=== PATIENT | female | born 1980 | race American Indian/Alaskan Native ===

== ENCOUNTER 2018-06-27 11:25 | Outpatient (CLI) | payer MEDICAID ==
[2018-06-27] MEDS ORDERED: LACTATED RINGERS 500 ML IV ONE (12:23)
[2018-06-27 13:01] LABS: Bilirubin,Urine NEG (Negative); Blood,Urine NEG (Negative); Color,Urine Yellow (Yellow); Mucus,Urine FEW /HPF; Protein,Urine <15 mg/dL mg/dL (Negative); Urobilinogen,Urine < 2.0 mg/dL (<2.0)
[2018-06-27 14:26] VITALS: BP 124/68
--- NOTE | 2018-06-27 14:53 | Ultrasound Report ---
ULTRASOUND OB LIMITED History: well being Technique: Transabdominal ultrasound with Doppler interrogation. Gestation: Single Position: Cephalic Placenta: Posterior fundal Placental Grade: 1 No evidence for abruption. Heart Rate: 166 BPM
== END 2018-06-27 14:53 | disposition home or self-care (01) ==
LOC: TRG 11:25
PROVIDERS: ATTEND Obstetrics & Gynecology
DX: O47.03 False labor before 37 completed weeks of gestation, third trimester (principal); Z3A.29 29 weeks gestation of pregnancy; Z91.040 Latex allergy status
CPT/HCPCS: 59025; 76815; 81001; J7120

== ENCOUNTER 2018-08-30 06:44 | Inpatient (IN) | payer MEDICAID ==
[2018-08-30] MEDS ORDERED: LACTATED RINGERS 2,000 ML ONE (08:30)
[2018-08-30] MEDS ORDERED: BRETHINE IVP PRN (08:59)
[2018-08-30] MEDS ORDERED: BRETHINE SUB-Q PRN (08:59)
[2018-08-30] MEDS ORDERED: LACTATED RINGERS 1,000 ML IV SCH (09:00)
--- NOTE | 2018-08-30 09:07 | Procedure Note ---
OB Delivery Note - Delivery Date of Delivery: 08/30/18 (08:37) Surgeon: JOHN YAP (GALINA) Estimated blood loss: 100cc - Vaginal Delivery presentation: vertex Delivery position: OA Intrapartum events: meconium, precipitous labor- <3hr Delivery induction: none Delivery monitor: external FHT, external uterine Route of delivery: (08:37) Delivery placenta: spontaneous (08:43) Delivery cord: 3 umbilical vessels Episiotomy: none Delivery laceration: none Anesthesia: none Delivery comments: viable female , AYDEN position, over intact perineum at 08:37 with RT/NICU present for meconium stained fluid. Vigorous infant to maternal abdomen, [id number]. Delayed cord clamping and cut by myself. IM pitocin given as pt had no IV. Cord blood collected per protocol. Spontaneous de jesus delivery of intact placenta. 3VC. 08:43. FF@U-2, no tears or lacerations. ebl 100cc. - Infant A at 1 minute: 9 at 5 minutes: 9 Infant Gender: Female (7lbs 3oz, 3262 grams, 20")
[2018-08-30 09:09] LABS: Hematocrit 35.6 % (30.3-42.9); Hemoglobin 11.7 gm/dl (10.1-14.3); Mean Corpuscular HGB Conc 33 % (30-34); Mean Corpuscular Volume 86 fl (79-97); Platelet Count 365 K/mm3 (140-440); Red Blood Count 4.14 M/mm3 (3.65-5.03); Red Cell Distribution Width 14.6 % (13.2-15.2)
--- NOTE | 2018-08-30 09:20 | History and Physical Report ---
History of Present Illness Date of examination: 08/30/18 Date of admission: 08/30/18 08:29 Chief complaint: contractions History of present illness: 38 yo AA Fe RELL 09/08/2018 (LMP) 38 weeks 5 days, presents in active labor. Pt initiated late care at 17w4d. records available. Reviewed and scanned into chart. multip. AMA. Declined consult/management. labs: A positive, Rubella non-immune, VDRL Non-reactive, HBsAg Negative, HIV Negative, GC/CL/Trich Negative, GBS collected. no results available. Past History Past Medical History: no pertinent history Past Surgical History: no surgical history (Denies) [employer] History: denies: abnormal PAP smear, chlamydia, gonorrhea, hepatitis B, hepatitis C, HIV, syphilis, trichomonas Family/Genetic History: diabetes, heart disease, hypertension, cancer (colon, breast) Social history: no significant social history, single, lives with family, full code. denies: smoking, alcohol abuse, prescription drug abuse, IV drug use - Obstetrical History Expected Date of Delivery: 09/08/18 Actual Gestation: 38 Week(s) 5 Day(s) : 10 Para: 6 Hx # Term Pregnancies: 6 Number of Pregnancies: 0 Spontaneous Abortions: 2 Induced : 1 Number of Living Children: 6 #1 Infant Gender: Male year: 2,003 Birthweight: 3.374 kg Method of Delivery: Vaginal Gestational age at delivery: 41 Complications: none #2 year: 2,005 Birthweight: 3.629 kg Method of Delivery: Vaginal Gestational age at delivery: 41 Complications: none #3 Infant Gender: Female year: 2,007 Birthweight: 3.232 kg Method of Delivery: Vaginal Gestational age at delivery: 41 Complications: none #4 Gender: Female year: 2,011 Birthweight: 3.175 kg Method of Delivery: Vaginal Gestational age at delivery: 40 Complications: none #5 Gender: Female year: 2,014 Birthweight: 3.629 kg Method of Delivery: Vaginal Gestational age at delivery: 40 Complications: none #6 Infant Gender: Female year: 2,016 Birthweight: 3.175 kg Method of Delivery: Vaginal Gestational age at delivery: 41 Complications: none Medications and Allergies Allergies Allergy/AdvReac Type Severity Reaction Status Date / Time Latex, Natural Rubber AdvReac Severe Rash Verified 06/27/18 12:23 Active Meds: Active Medications Ephedrine Sulfate (Ephedrine Sulfate) 10 mg IV Q2M PRN PRN Reason: Hypotension Lactated Ringer's (Lactated Ringers) 1,000 mls @ 125 mls/hr IV DIRECT VIRGIL Terbutaline Sulfate (Brethine) 0.25 mg SUB-Q ONCE PRN PRN Reason: Hyperstimulation/Hypertonicity Terbutaline Sulfate (Brethine) 0.25 mg IVP ONCE PRN PRN Reason: Hyperstimulation/Hypertonicity Review of Systems Eyes: normal appearance Cardiovascular: no chest pain, no shortness of breath Respiratory: no shortness of breath Breasts: normal Gastrointestinal: no abdominal pain, no nausea, no vomiting, no diarrhea Genitourinary: normal appearance, leakage of fluid (SROM Meconium in Triage), contractions Musculoskeletal: other (denies) Integumentary: no rash, no sores, no lesions Psychiatric: other (Denies) - Vital Signs Vital signs: Vital Signs Pulse BP 90 127/80 08/30/18 08:49 08/30/18 08:49 Temp Pulse Resp BP Pulse Ox 88 123/79 08/30/18 09:03 08/30/18 09:03 - Physical Exam Breasts: Positive: normal Cardiovascular: Regular rate, Normal S1, Normal S2, No murmurs Abdomen: Positive: soft, normal bowel sounds. Negative: distention Genitourinary (Female): Positive: normal external genitalia, normal perenium Vulva: both: normal Vagina: Positive: normal moisture, other (SROM lg amt meconium stained fluid) Uterus: Positive: enlarged (gravid) Anus/Rectum: Positive: normal perianal skin Extremities: Positive: normal Deep Tendon Reflex Grade: Normal +2 - Obstetrical FHR: auscultation normal, category 2 Uterine Contraction Monitor Mode: External Cervical Dilatation: 10 (6 cm on admission in triage per RN) Cervical Effacement Percentage: 10 station: +2 Uterine Contraction Pattern: Regular Uterine Tone Measurement Phase: Resting Uterine Contraction Intensity: Strong/Firm Results Result Diagrams: 08/30/18 08:50 Abnormal lab results 08/30/18 Range/Units 08:50 WBC 13.8 H (4.5-11.0) K/mm3 All other labs normal. Assessment and Plan A: Term IUP at 38w5d Grand multip AMA 38 yo GBS unknown Category 2 tracing Meconium stained fluid P: Admit to L&D; Routine labor orders Anticiapte
[2018-08-30] MEDS ORDERED: MILK OF MAGNESIA PO PRN (10:30)
[2018-08-30] MEDS ORDERED: ZOFRAN IV PRN (10:30)
[2018-08-30] MEDS ORDERED: TUCKS PAD TP PRN (10:30)
[2018-08-30] MEDS ORDERED: LANSINOH TP PRN (10:30)
[2018-08-30] MEDS ORDERED: TYLENOL PO PRN (10:30)
[2018-08-30] MEDS ORDERED: SODIUM CHLORIDE FLUSH SYRINGE 10 ML IV PRN (10:30)
[2018-08-30] MEDS ORDERED: BENADRYL PO PRN (10:30)
[2018-08-30] MEDS ORDERED: NORCO 5/325 PO PRN (10:30)
[2018-08-30] MEDS ORDERED: DULCOLAX PR PRN (11:00)
[2018-08-30] MEDS: TYLENOL #3 PO PRN (12:45)
[2018-08-30] MEDS: IBUPROFEN PO SCH (20:05)
[2018-08-30 21:59] LABS: Hematocrit 31.9 % (30.3-42.9); Hemoglobin 10.9 gm/dl (10.1-14.3)
[2018-08-31] MEDS: IBUPROFEN PO SCH ×4 (03:55→23:00)
--- NOTE | 2018-08-31 10:33 | Progress Note ---
Assessment and Plan A: day 1 S/P spontaneous vaginal delivery. Anemia secondary to and blood loss. P: Supplement with iron. Anticipate discharge tomorrow. Subjective - Subjective Date of service: 08/31/18 Principal diagnosis: day 1 S/P spontaneous vaginal delivery Interval history: day 1 S/P spontaneous vaginal delivery. Doing well. Patient reports small amount of lochia. Voiding without difficulty, passing gas, tolerating a regular diet. Ambulating well. Patient denies headache, chest pain, cough, shortness of breath, dizziness, nausea or vomiting, abdominal pain, heavy bleeding. Patient reports: appetite normal, voiding normally, pain well controlled, flatus, ambulating normally, no dizzy ambulation, no nauseated : doing well Objective - Vital Signs Latest vital signs: Vital Signs Temp Pulse Resp BP BP Pulse Ox 08/31/18 08:27 98.2 F 79 18 121/77 98 08/31/18 03:55 20 08/31/18 00:05 98.6 F 78 16 118/74 95 08/30/18 20:14 98.0 F 86 18 129/83 97 08/30/18 20:05 18 08/30/18 16:27 97.9 F 87 16 128/89 98 08/30/18 13:45 18 08/30/18 13:40 97.9 F 98 H 18 135/93 99 08/30/18 12:45 18 08/30/18 10:32 98.1 F 70 18 119/69 99 Intake and Output 08/30/18 08/31/18 08/31/18 23:59 07:59 15:59 Intake Total 400 Balance 400 Intake: Oral 400 Other: Total, Intake Amount 200 - Exam Cardiovascular: Present: Regular rate, Normal S1, Normal S2 Lungs: Present: Clear to auscultation Abdomen: Present: normal appearance, soft. Absent: distention, tenderness, guarding, rigidity Uterus: Present: normal, firm, fundal height below umbilicus. Absent: bogginess, tenderness Extremities: Present: normal. Absent: tenderness, edema
[2018-08-31] MEDS: FEOSOL PO SCH (14:47)
[2018-08-31] MEDS: TYLENOL #3 PO PRN (20:55)
[2018-09-01] MEDS: IBUPROFEN PO SCH ×3 (05:00→15:32)
[2018-09-01 07:50] VITALS: BP 123/69
[2018-09-01] MEDS: FEOSOL PO SCH (09:28)
--- NOTE | 2018-09-01 11:53 | Progress Note ---
Assessment and Plan A: day 2 S/P spontaneous vaginal delivery. Anemia secondary to and blood loss. P: Discharge patient home today. discharge instructions and warning signs discussed with patient. Advised patient to continue taking her vitamins and iron supplements at home. Advised patient to avoid lifting and heavy housework, sexual intercourse, driving, tub baths (patient may take showers). Advised patient to follow up at OB clinic in 6 weeks for exam; advised patient that she must call the clinic for an appointment. Patient voiced understanding of instructions. Subjective - Subjective Date of service: 09/01/18 Principal diagnosis: day 2 S/P spontaneous vaginal delivery Interval history: day 2 S/P spontaneous vaginal delivery. Patient requests discharge home today. Doing well. Patient reports small amount of lochia. Voiding without difficulty, passing gas, tolerating a regular diet. Ambulating well. Patient denies headache, chest pain, cough, shortness of breath, dizziness, nausea or vomiting, abdominal pain, heavy bleeding. Patient reports: appetite normal, voiding normally, pain well controlled, flatus, ambulating normally, no dizzy ambulation, no nauseated [place]: doing well Objective - Vital Signs Latest vital signs: Vital Signs Temp Pulse Resp BP BP Pulse Ox 09/01/18 07:26 97.9 F 83 18 123/69 09/01/18 00:52 98.5 F 72 20 111/64 98 08/31/18 15:09 98.4 F 74 18 112/76 Intake and Output 08/31/18 09/01/18 09/01/18 23:59 07:59 15:59 Intake Total 240 360 Balance 240 360 Intake: Oral 360 Intake, Free Water 240 Other: Total, Intake Amount 360 # Voids Void 3 - Exam Cardiovascular: Present: Regular rate, Normal S1, Normal S2, No murmurs Lungs: Present: Clear to auscultation Abdomen: Present: normal appearance, soft. Absent: distention, tenderness, guarding, rigidity Uterus: Present: normal, firm, fundal height below umbilicus. Absent: bogginess, tenderness Extremities: Present: normal. Absent: tenderness
--- NOTE | 2018-09-01 11:59 | Discharge Summary ---
<ROSANNE FRANKS - Last Filed: 09/01/18 11:55> Providers - Providers Date of Admission: 08/30/18 08:29 Date of discharge: 09/01/18 Attending physician: GAVIN PATTEN MD None Primary care physician: GAVIN PATTEN MD Hospitalization Reason for admission: active labor Delivery: Episiotomy: none Laceration: none Other procedures: none complications: none Discharge diagnosis: IUP at term delivered [place] baby: female Pertinent studies: Labs Hospital course: Normal hospital course. Condition at discharge: Good Disposition: DC-01 TO HOME OR SELFCARE - Discharge Diagnoses (1) Term delivered Status: Acute (2) Anemia due to blood loss Status: Acute Plan - Provider Discharge Summary Activity: routine, no sex for 6 weeks, no heavy lifting 4 weeks, no strenuous exercise Diet: routine Instructions: routine Additional instructions: Please continue taking your vitamins and iron supplements at home. Call your doctor immediately for: * Fever > 100.5 * Heavy vaginal bleeding ( >1 pad per hour) * Severe persistent headache * Shortness of breath * Reddened, hot, painful area to leg or breast - Follow up plan Follow up: GAVIN PATTEN MD [Primary Care Provider] - 6 Weeks Forms: Discharge Signature Page <AMY COTE - Last Filed: 09/02/18 05:02> Providers - Providers Date of Admission: 08/30/18 08:29 Attending physician: GAVIN PATTEN MD Primary care physician: GAVIN PATTEN MD Hospitalization Pertinent studies: Laboratory Tests 08/30/18 08/30/18 08/30/18 08:50 08:50 08:50 WBC 13.8 H RBC 4.14 Hgb 11.7 Hct 35.6 MCV 86 MCH 28 MCHC 33 RDW 14.6 Plt Count 365 RPR Nonreactive Blood Type A POSITIVE Antibody Screen Negative 08/30/18 21:22 WBC RBC Hgb 10.9 Hct 31.9 MCV MCH MCHC RDW Plt Count RPR Blood Type Antibody Screen - Discharge Diagnoses (1) Anemia due to blood loss Status: Acute Comment: Anemia of acute blood loss. Asymptomatic. Continue iron therapy. Plan - Provider Discharge Summary Additional instructions: [] Smoking cessation referral if applicable(refer to patient education folder for contact #) [] Refer to [facility]'s [facility] Booklet Call your doctor immediately for: * Fever > 100.5 * Heavy vaginal bleeding ( >1 pad per hour) * Severe persistent headache * Shortness of breath * Reddened, hot, painful area to leg or breast * Drainage or odor from incision. * Keep incision clean and dry at all times and follow doctor's instructions regarding bathing/showering
== END 2018-09-01 14:30 | disposition home or self-care (01) | DRG 775 ==
LOC: TRG 06:44 → LD 08:29 → OB 10:17
PROVIDERS: ADMIT Obstetrics & Gynecology; ATTEND Obstetrics & Gynecology
PROC: 10E0XZZ Delivery of Products of Conception, External Approach (ICD-10-PCS; principal; 2018-08-31)
DX: O62.3 Precipitate labor (principal); Z37.0 Single live birth; O99.02 Anemia complicating childbirth; D50.0 Iron deficiency anemia secondary to blood loss (chronic); O77.0 Labor and delivery complicated by meconium in amniotic fluid; Z80.3 Family history of malignant neoplasm of breast; Z80.0 Family history of malignant neoplasm of digestive organs; Z83.3 Family history of diabetes mellitus; Z82.49 Family history of ischemic heart disease and other diseases of the circulatory system; Z3A.38 38 weeks gestation of pregnancy; Z91.040 Latex allergy status
CPT/HCPCS: 36415; 59025; 85014; 85018; 85027; 86592; 86850; 86900; 86901; 96372; G0378; J7120